=== PATIENT | male | born 1945 | race Caucasian/White ===

== ENCOUNTER 2019-11-08 12:48 | Emergency (ER) | payer MEDICARE ==
--- NOTE | 2019-11-08 13:20 | ED ---
Neurological HPI - HPI Summary HPI Summary: The pt is a 74 yr old male [facility] c/o numbness and tingling in his left arm radiating up to his shoulder beginning 4 days [employer]. He notes that 3 days [employer] the numbness/tingling was not bothering him as much and he was able to run 3 miles as his regular exercise routine. However, last night after dinner he returned home feeling anxious and with numbness and tingling in his left arm. He rates his current pain severity a 0/10. No aggravating or alleviating factors noted. He also denies any weakness, vision changes, drooling, or neck pain. He has Hx of bone spur, HTN, and HLD, but not DM, heart problems, TIA, or stroke. - History of Current Complaint Chief Complaint: EDNeurologicalDeficit Stated Complaint: LEFT ARM NUMBNESS/TINGLING PER PT Time Seen by Provider: 11/08/19 12:57 Hx Obtained From: Patient Onset/Duration: Sudden Onset, Started days ago, Still Present Timing: Intermittent Episodes Lasting: Onset Severity: Severe Current Severity: Severe Seizure Severity: Severe Pain Intensity: 8 Pain Scale Used: 0-10 Numeric Character: Numbness/Tingling Aggravating: Nothing Alleviating: Nothing Associated Signs and Symptoms: Positive: Negative - drooling, Numbness. 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 INGUINAL HERNIA REPAIR Infectious Disease History: No Infectious Disease History: Denies: Traveled Outside the [place] in Last 30 Days - Social History Alcohol Use: None Hx Substance Use: No Substance Use Type: Reports: None Hx Tobacco Use: No Smoking Status (MU): Never Smoked Tobacco Review of Systems Constitutional: Negative - drooling Negative: Blurred Vision Musculoskeletal: Negative - neck pain Neurological: Other - pos - tingling Positive: Numbness. Negative: Weakness All Other Systems Reviewed And Are Negative: Yes Physical Exam - Summary Physical Exam Summary: VITAL SIGNS: Reviewed. GENERAL: Patient is a well-developed and nourished male who is lying comfortable in the stretcher. Patient is not in any acute respiratory distress. HEAD AND FACE: No signs of trauma. No ecchymosis, hematomas or skull depressions. No sinus tenderness. EYES: PERRLA, EOMI x 2, No injected conjunctiva, no nystagmus. EARS: Hearing grossly intact. Ear canals and tympanic membranes are within normal limits. MOUTH: Oropharynx within normal limits. NECK: Supple, trachea is midline, no adenopathy, no JVD, no carotid bruit, no c- spine tenderness, neck with full ROM. CHEST: Symmetric, no tenderness at palpation. LUNGS: Clear to auscultation bilaterally. No wheezing or crackles. CVS: Regular rate and rhythm, S1 and S2 present, no murmurs or gallops appreciated. ABDOMEN: Soft, non-tender. No signs of distention. No rebound, no guarding, and no masses palpated. Bowel sounds are normal. EXTREMITIES: FROM in all major joints, no edema, no cyanosis or clubbing. NEURO: Alert and oriented x 3. No acute neurological deficits. Speech is normal and follows commands. GCS of 15. NIH Stroke scale score of 0. SKIN: Dry and warm. Triage Information Reviewed: Yes Vital Signs On Initial Exam: Initial Vitals Temp Pulse Resp BP Pulse Ox 98.1 F 69 16 201/105 100 11/08/19 12:50 11/08/19 12:50 11/08/19 12:50 11/08/19 12:50 11/08/19 12:50 Vital Signs Reviewed: Yes Procedures - Sedation Patient Received Moderate/Deep Sedation with Procedure: No Diagnostics - Vital Signs Vital Signs Temp Pulse Resp BP Pulse Ox 11/08/19 12:50 98.1 F 69 16 201/105 100 - Laboratory Result Diagrams: 11/08/19 13:34 11/08/19 13:34 Lab Statement: Any lab studies that have been ordered have been reviewed, and results considered in the medical decision making process. - EKG 1328 Cardiac Rate: NL EKG Rhythm: Sinus Rhythm - 61 bpm Summary of EKG Findings: EKG done at 1328 reveals NSR @ [address] elevations. NIH Scale - NIH Scale Level of Consciousness: Alert/Keenly Responsive Ask Patient the Month and His/Her Age: Both Correct Ask Pt to Open/Close Eyes and Side Framer/Release Non-Paretic Hand: Both Correctly Best Gaze (Only Horizontal Eye Movement): Normal Visual Field Testing: No Visual Loss Facial Paresis-Pt to Smile & Close Eyes or Grimace Symmetry: Normal/Symmetrical Motor Function - Right Arm: No Drift-Holds 10 Seconds Motor Function - Left Arm: No Drift-Holds 10 Seconds Motor Function - Right Leg: No Drift-Holds 10 Seconds Motor Function - Left Leg: No Drift-Holds 10 Seconds Limb Ataxia-Must be out of Proportion to Weakness Present: Absent Sensory (Use Pinprick to Test Arms/Legs/Trunk/Face): Normal Best Language (Describe Picture, Name Items): No Aphasia Dysarthria (Read Several Words): Normal Extinction and Inattention: No Abnormality Total Score: 0 Re-Evaluation - Re-Evaluation First Eval Re-Evaluation Time: 15:37 Change: Improved Comment: Pt's numbness/tingling resolved. Course/Dx - Course Assessment/Plan: The pt is a 74 yr old male presenting to [facility] c/o numbness and tingling in his left arm radiating up to his shoulder beginning 4 days [employer]. He notes that 3 days [employer] the numbness/tingling was not bothering him as much and he was able to run 3 miles as his regular exercise routine. However, last night after dinner he returned home feeling anxious and with numbness and tingling in his left arm. He rates his current pain severity a 0/10. No aggravating or alleviating factors noted. He also denies any weakness, vision changes, drooling, or neck pain. He has Hx of bone spur, HTN, HLD, but not DM, heart problems, TIA, or stroke. Blood work without any significant abnormality except for glucose of 118. Head CT IMPRESSION: 1. No acute intracranial abnormality by CT. 2. Mild cerebral volume loss. 3. Left mastoid effusion. C Spine CT IMPRESSION: Very degrees of multilevel spondylosis. 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 On the left, its worst at C3- C4. CXR IMPRESSION: No acute cardiopulmonary process by radiograph. Patient reports that the tingling in the left upper extremity has resolved. I re- examined the patient and his neurovascular intact. I my findings and test results with the patient and the need to follow-up with the primary care physician. He reports that he thinks he has anxiety for which he takes Klonopin however he usually doesnt take it. Therefore she reports that she will take the medication for his anxiety. At this point, I discussed all the findings and test results with the patient. Patient was instructed to return to the emergency room immediately if any of the symptoms return or worsen. Patient understands and agrees. Neurological exam before discharge: Patient is alert and oriented x 3. No acute neurological deficits. Patient's vital signs are stable. Patient is to follow up with CPP in the next 2 3 days. They understand and agree. The plan of care was discussed with the patient and patient understands and agrees with the plan of care. All questions were answered at patient satisfaction. There were no further complaints or concerns. - Differential Dx Differential Diagnoses Neuro: Positive: Carbon Monoxide Poisoning, Cephalgia, Cerebrovascular Accident, Transient Ischemic Attack - Diagnoses Provider Diagnoses: Paresthesia of arm Discharge ED - Sign-Out/Discharge Documenting (check all that apply): Patient Departure - discharge - Discharge Plan Condition: Stable Disposition: HOME Patient Education Materials: Paresthesia (ED) Referrals: Te Barnett MD [Primary Care Provider] - 3 Days Additional Instructions: Please return to the ED for any new or worsening symptoms. Please follow up with your primary care provider within 3 days. - Billing Disposition and Condition Condition: STABLE Disposition: Home - Attestation Statements Document Initiated by Elba: Yes Documenting Scribe: Nick Ledbetter Provider For Whom Elba is Documenting (Include Credential): Demetrius Baltazar MD Scribe Attestation: Nick Castro, scribed for Demetrius Baltazar MD on 11/09/19 at 1600. Scribe Documentation Reviewed: Yes Provider Attestation: The documentation as recorded by the Nick baptiste accurately reflects the service I personally performed and the decisions made by me, Demetrius Baltazar MD Status of Scribe Document: Viewed
[2019-11-08 13:44] LABS: ABS Eosinophils 0.1 10^3/ul (0-0.6); ABS Lymphocytes 1.2 10^3/ul (1.0-4.8); ABS Monocytes 0.7 10^3/ul (0-0.8); ABS Neutrophils 4.2 10^3/ul (1.5-7.7); Eosinophil % 1.5 %; Hematocrit 44 % (42-52); Hemoglobin 15.2 g/dL (14.0-18.0); Lymphocyte % 19.1 %; Mean Corpuscular HGB Conc 35 g/dL (31-36); Mean Corpuscular Hemoglobin 34 pg (27-31); Mean Corpuscular Volume 98 fL (80-94); Mean Platelet Volume 6.7 fL (7.4-10.4); Platelet Count 239 10^3/uL (150-450); Red Blood Count 4.49 10^6 /uL (4.18-5.48); Red Cell Distribution Width 13 % (10-15); White Blood Count 6.2 10^3/uL (3.5-10.8)
[2019-11-08 13:55] LABS: INR 0.97 (0.82-1.09)
[2019-11-08 14:02] LABS: Albumin 3.7 g/dL (3.2-5.2); Albumin/Globulin Ratio 1.2 (1-3); BUN/Creatinine Ratio 19.3 (8-20); Calcium 9.6 mg/dL (8.6-10.3); EGFR African American 102.7 (>60); EGFR Non-African American 84.9 (>60); Globulin 3.2 g/dL (2-4); HDL Cholesterol 65.6 mg/dL; Total Bilirubin 0.6 mg/dL (0.2-1.0); Total Protein 6.9 g/dL (6.4-8.9)
[2019-11-08 14:04] LABS: Troponin I 0.01 ng/mL (<0.03)
[2019-11-08 15:30] LABS: Urine Appearance Clear; Urine Bilirubin Negative (Negative); Urine Blood Negative (Negative); Urine Color Yellow; Urine Glucose Negative (Negative); Urine Ketones Negative (Negative); Urine Nitrite Negative (Negative); Urine Protein Negative (Negative); Urine Specific Gravity 1.006 (1.010-1.030); Urine Urobilinogen Negative (Negative)
[2019-11-08 15:54] VITALS: BP 170/68
== END 2019-11-08 15:52 | disposition home or self-care (01) ==
LOC: ED 12:48
DX: R20.2 Paresthesia of skin (principal); R07.89 Other chest pain; M47.812 Spondylosis without myelopathy or radiculopathy, cervical region; H70.92 Unspecified mastoiditis, left ear; Z88.8 Allergy status to other drugs, medicaments and biological substances
CPT/HCPCS: 36415; 70450; 71046; 72125; 80053; 80061; 81003; 83605; 84484; 85025; 85610; 93005; 99283